=== PATIENT | male | born 1995 | race Caucasian/White ===

== ENCOUNTER 2021-07-09 00:38 | Inpatient (IN) | payer BC, SELFPAY ==
[2021-07-09 00:50] VITALS: BP 133/82; PULSE 79; RESP 18; TEMP 36.4; O2SAT 98
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
[2021-07-09 13:00] VITALS: BP 132/61; PULSE 83; RESP 18; TEMP 36.6; O2SAT 97
[2021-07-09 21:26] VITALS: BP 119/60; PULSE 78; TEMP 36.7; O2SAT 99
[2021-07-10 06:00] VITALS: BP 104/57; PULSE 79; RESP 18; TEMP 36.6; O2SAT 98
[2021-07-10 10:43] LABS: Alanine Aminotransferase 19 U/L (0-40); Albumin Level 4.1 g/dL (3.5-5.0); Alkaline Phosphatase 76 U/L (39-117); Anion Gap 14 (12-20); Aspartate Amino Transferase 17 U/L (5-37); Bilirubin Total 0.6 mg/dL (0.0-1.0); Blood Urea Nitrogen 13 mg/dL (9-16); Calcium 9.8 mg/dL (8.4-10.2); Carbon Dioxide 24 mmol/L (22-29); Chloride 107 mmol/L (96-108); Cholesterol 167 mg/dL; Estimated Glomerular Filt Rate > 60; Glucose Fasting 93 mg/dL (60-99); HDL Cholesterol 69 mg/dL; LDL Cholesterol Calculated 78 mg/dl; Sodium 141 mmol/L (135-145); Total Protein 7.1 g/dL (6.5-8.0); Triglycerides 101 mg/dL
--- NOTE | 2021-07-10 11:44 | PM.IMCN ---
History of Present Illness Data of Consult Service Date: 07/10/21 Primary Care Provider: Unknown Physician HPI Reason for consult: Routine Medical H&P This is a 26 yo M who reports no significant PMH. He is admitted to [facility]. Routine medical consult requested for H&P. PMH/PSH - denies both FH - reports no significant PMH SH -- reports social tobacco, alcohol and marijuana use; no illicit substance use reported Review of Systems Review of Systems: negative except HPI PMFSH Social History Household Members: Friend(s) Housing: Apartment Do you presently have visiting nurse or other home services: No Patient Tobacco Use Status: Current someday Tobacco user Tobacco use type: Cigarette Cigarette Packs Per Day: 0.2 Cigarettes Per Day: 4.0 Years Smoked: 4 Smoked in Last 30 Days: Yes e-Cigarette/Vaping Use: Never Used Frequency of e-Cigarette/Vaping Use: none Patient Interested in Nicotine Replacement: No Patient Given Instructions on How to Stop Smoking: Yes Date Education Initiated: 07/09/21 Second Hand Smoke Exposure: Yes Use of substances other than those prescribed or required for medical reasons: Yes Substance Use Type: Amphetamines Substance Use Type Other:: Adderall Substance Use Frequency: Occasionally Last Used Substance: Unknown Currently Displaying Signs/Symptoms of Drug Intoxication Withdrawal: No Any prior treatment program specific to substance use: No Have you been hit, kicked, punched, or otherwise hurt by someone within the past year? If so, by whom?: No Do you feel safe in your current relationship?: Yes Is there a partner from a previous relationship who is making you feel unsafe now?: No Are you made to feel afraid or neglected: No Spiritual Healthcare Practices: none reported Druze Healthcare Practices: none reported Cultural Healthcare Practices: none reported Advance Directives: No Advance Directives Information Provided: No Advance Directives on File: No Do you have thoughts of harming others: None Do you have a plan to hurt others: No Plan Recently lost weight without trying: No How much weight loss: Not applicable Eating poorly because of decreased appetite: No Nutrition screen score: 0 Nutrition Risks: No Nutritional Risk Poor oral hygiene: No service: Yes (Served 4 years in the [employer].) Sexual orientation: Did not discuss. Meds Allergies Allergy/AdvReac Type Severity Reaction Status Date / Time No Known Allergies Allergy Verified 07/09/21 01:15 Active Medications: Current Medications Acetaminophen (Acetaminophen 325 Mg Tablet) 650 mg PO Q6H PRN PRN Reason: Headache/Pain Mild Scale (1-3) Al Hydroxide/Mg Hydroxide (Magnesium Hydrox/Alum Hydrox 30 Ml Oral.Susp) 30 ml PO Q6H PRN PRN Reason: Heartburn/Nausea Hydroxyzine HCl (Hydroxyzine Hcl 25 Mg Tablet) 25 mg PO BEDTIME PRN PRN Reason: Anxiety Magnesium Hydroxide (Milk Of Magnesia 30 Ml Oral.Susp) 30 ml PO DAILY PRN PRN Reason: Constipation Trazodone HCl (Trazodone Hcl 50 Mg Tablet) 50 mg PO BEDTIME PRN PRN Reason: Insomnia Home Medications Medication Instructions Recorded Confirmed Last Taken Type No Known Home Meds 07/09/21 07/09/21 Unknown History Physical Exam Vital Signs and Narrative: Vital Signs: Last Vital Signs Temp 97.9 F 07/10/21 06:00 Pulse 79 07/10/21 06:00 Resp 18 07/10/21 06:00 BP 104/57 L 07/10/21 06:00 Pulse Ox 98 07/10/21 06:00 Const: Other: General - no acute distress, appears comfortable Cardiovascular - regular rate and rhythm, S1-S2 Lungs - normal respiratory effort, clear to auscultation bilaterally, no wheezing Abdomen - soft, nontender, no rebound or guarding Extremities - no edema bilaterally Neuro - awake and alert, no focal deficits; cn 2-12 intact b/l Results Labs CBC and Chem 7: 07/10/21 08:48 Labs: Laboratory Results - last 24 hr 07/10/21 08:48 Anion Gap 14 Estim Creat Clear Calc TNP Estimated GFR > 60 Fasting Glucose 93 Calcium 9.8 Total Bilirubin 0.6 AST 17 ALT 19 Alkaline Phosphatase 76 Total Protein 7.1 Albumin 4.1 Triglycerides 101 Cholesterol 167 LDL Cholesterol, Calc 78 HDL Cholesterol 69 Assessment and Plan (1) Routine medical exam: Status: Acute Plan 26 yo M who reprots no significant PMH. Medical consultation sought for routine medical H&P. Patient has no active nor chronic medical issues. Patient has been counseled on age appropriate health maintenance as an outpatient. Continue care per primary team. Will sign off. Please re-consult if any issues arise.
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
[2021-07-10 21:21] VITALS: BP 119/56; PULSE 83; TEMP 36.9; O2SAT 97
[2021-07-11 09:37] VITALS: BP 119/56; PULSE 71; RESP 16; TEMP 36.6; O2SAT 100
--- NOTE | 2021-07-11 09:38 | PC.NURSE ---
Jean is alert, fully oriented, pleasant and cooperative with discharge process. He denies ideation, plan or intent to harm self or others. 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 He is able to verbalize plan to utilize community resources prior to acting on thoughts of harm to self or others in the future: [place] hotline, Crisis Line, [facility] and/ or to use meditation to cope. He denies perceptual disturbance. He denies physical complaint.
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
== END 2021-07-11 12:20 | disposition home or self-care (01) | DRG 751 ==
PROVIDERS: Psychiatry & Neurology Psychiatry; Admitting Provider Psychiatry & Neurology Psychiatry; Visit Provider Social Worker
DX: F33.1 Major depressive disorder, recurrent, moderate (principal); R45.851 Suicidal ideations; F17.210 Nicotine dependence, cigarettes, uncomplicated; Z71.6 Tobacco abuse counseling; F10.20 Alcohol dependence, uncomplicated; Y90.6 Blood alcohol level of 120-199 mg/100 ml
CPT/HCPCS: 36415; 80053; 80061